=== PATIENT | female | born 1990 | race Caucasian/White ===

== ENCOUNTER 2023-08-26 11:27 | Emergency (ER) | payer OTHER, SELFPAY ==
[2023-08-26 11:34] VITALS: BP 129/96
--- NOTE | 2023-08-26 12:29 | EDRN ---
Tre Casillas PA was in to see pt at this time.
--- NOTE | 2023-08-26 12:40 | ED.GENMED ---
History of Present Illness
General
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
Time Seen by Provider: 08/26/23 12:09
Travel History
Have you had any contact with someone who has COVID-19?: No
Do you have any symptoms of coronavirus? Fever > 100 degrees, chills, cough, shortness of breath, sore throat, loss of taste or smell, muscle aches, or headache?: No
History of Present Illness
History of Present Illness:
32-year-old female with history of insulin-dependent diabetes presents the emergency department for evaluation of a 'cyst' on the right side of her vagina over the past week. She noted purulent discharge from the site this morning. No fevers or
chills. Denies concern for sexual transmitted infection
Past History
Past History
ED Past Medical History: IDDM, Other (gestational diabetes) and Other (Low back pain)
ED Past Surgical History: Other (Myringotomy tubes)
Social History
Tobacco: Former smoker
Alcohol: Occasional
Drug: None
Personal: Single
Living: with family
Employment: Employed ([employer] home)
Family History
Family History: Diabetes
Review of Systems
Review of Systems
Allergies reviewed?: Yes
All Other Systems: ROS reviewed and negative except as documented in HPI and ROS
Phy Exam
Physical Exam
Physical Exam:
GEN: Well appearing, NAD, WDWN
HEENT: Oral mucosa moist, no scleral icterus
Cardiac: Regular rate
Lung: No respiratory distress, no tachypnea
MSK: No gross deformity or injuries
: Exam performed with plumbing service technician Anuradha Davis at bedside. There is a 1 cm x 2 cm firm abscess with central punctate wound to the right external labia, this is not consistent with a Bartholin gland abscess. There is small amount of purulent
discharge
Skin: Good color, no pallor or jaundice, no rashes
Neuro: AO x3, moves all extremities freely
Psych: Calm, cooperative
Course
Vital Signs
Initial and Last Documented VS:
Initial Vital Signs
Temp Pulse Resp BP Pulse Ox
98 F 105 16 129/96 98
08/26/23 11:34 08/26/23 11:34 08/26/23 11:34 08/26/23 11:34 08/26/23 11:34
Last Documented Vital Signs
Temp Pulse Resp BP Pulse Ox
98 F 105 16 129/96 98
08/26/23 11:34 08/26/23 11:34 08/26/23 11:34 08/26/23 11:34 08/26/23 11:34
MDM/Problems Addressed
MDM/Problems Addressed:
The abscess wound was opened at the bedside after topical anesthetic using an 11 blade scalpel. There is only a scant amount of purulent discharge. Blunt forceps were used to bluntly dissect and break up loculations however no significant purulent
discharge was noted. This is not a Bartholin gland abscess. Will treat with antibiotics both topically and orally given that she is immunocompromise in the setting of insulin-dependent diabetes.
*Critical Care Note
Total Time (30-74mins, 75-104mins- exclusive of procedures): Not Applicable
ED Attending Note
-
Portions of this chart may have been created with voice recognition software.� Occasional wrong word or��sound alike� substitutions may have occurred due to the inherent limitations of voice recognition software.
Discharge Plan
Departure
Patient Disposition: Home (Routine Discharge)
Date of Disposition: 08/26/23
Time of Disposition: 12:40
Patient with high blood pressure during this ER visit?: No
Discharge Problem:
Abscess of genital labia
Instructions: Abscess Incision and Drainage (DC)
Prescriptions:
New
sulfamethoxazole-trimethoprim [Bactrim DS] 800-160 mg tablet
1 tab PO Q12H Qty: 14 0RF
mupirocin 2 % ointment
1 applic topical BID 7 Days Qty: 22 0RF
No Action
(DME) Blood Glucose Test 1 EACH strip
1 ea MC ACHS Qty: 200 0RF
Rx Instructions:
E10.65
OneTouch Verio test strips
insulin lispro [Humalog KwikPen Insulin] 100 UNIT/ML insulin pen
14 units SC AC Qty: 5 0RF
Rx Instructions:
E10.65
(DME) pen needle, diabetic 1 EACH needle
1 ea MC ACHS Qty: 200 0RF
Rx Instructions:
BD ROHAN pen needles
E10.65
(DME) lancets 1 EACH misc
1 ea MC ACHS Qty: 200 0RF
Rx Instructions:
Delica lancets
E10.65
insulin glargine [Basaglar KwikPen U-100 Insulin] 100 UNIT/ML insulin pen
28 unit SQ HS Qty: 5 0RF
Rx Instructions:
E1065
cefdinir 300 mg capsule
300 mg PO BID 6 Days Qty: 12 0RF
insulin lispro [Humalog KwikPen Insulin] 100 unit/mL insulin pen
1 sliding scale dose SC DIRECTED Qty: 15 0RF
Referrals:
Cornelius Hendrix MD [Family Provider] -
Activity Restrictions/Additional Instructions:
Warm compresses daily
Keep covered until bleeding stops
Interventions
Interventions:
*Risk Screen - Suicide Last Done: 08/26/23 11:34
*General Assessment Last Done: 08/26/23 11:34
*Neglect/Abuse Screening Last Done: 08/26/23 11:34
*Nursing Disposition Last Done: 08/26/23 12:50
Discharge Date and Time
Discharge Date/Time: 08/26/23 12:50
--- NOTE | 2023-08-26 12:50 | EDRN ---
This RN did not see pt. Pt was seen and discharged solely by Tre VILLALBA.
== END 2023-08-26 12:50 | disposition home or self-care (01) ==
LOC: EMR 11:27
PROVIDERS: EMERGENCY PHYSICIAN Emergency Medicine; FAMILY PHYSICIAN Internal Medicine
DX: N76.4 Abscess of vulva (principal); E11.9 Type 2 diabetes mellitus without complications; Z79.4 Long term (current) use of insulin; Z83.3 Family history of diabetes mellitus; Z87.891 Personal history of nicotine dependence
CPT/HCPCS: 99282; 56405

== ENCOUNTER → 2023-11-04 06:36 | Day surgery (SDC) | payer OTHER, SELFPAY ==
[2023-11-04 12:37] LABS: Glucose - Point of Care 283 mg/dl (70-99)
== END ==
LOC: GI 06:36
PROVIDERS: ATTENDING PHYSICIAN Internal Medicine Gastroenterology
DX: K52.9 Noninfective gastroenteritis and colitis, unspecified (principal); K64.8 Other hemorrhoids; D12.2 Benign neoplasm of ascending colon
CPT/HCPCS: 45385; 45380; 88305; 82962

== ENCOUNTER 2024-01-30 22:11 | Inpatient (IN) | payer OTHER, SELFPAY ==
[2024-01-30 18:30] VITALS: BP 136/90
[2024-01-30 18:48] LABS: % Basophils 0.7 % (0-2); % Eosinophils 0.9 % (0-6); % Immature Granulocytes 0.4 % (0-0.5); % Lymphocytes 27.2 % (20.5-51.1); % Monocytes 4.3 % (1.7-9.3); % Neutrophils 66.5 % (42.2-75.2); Absolute Basophils 0.1 10^3/uL (0-0.2); Absolute Eosinophils 0.1 10^3/uL (0-0.7); Absolute Lymphocytes 2.8 10^3/uL (1.2-3.4); Absolute Monocytes 0.4 10^3/uL (0.1-0.6); Absolute Neutrophils 6.8 10^3/uL (1.4-6.5); Hemoglobin 12.9 g/dL (12.0-16.0); Mean Corp Hgb Conc. 34.9 g/dL (33.0-37.0); Mean Corpuscular Hgb 29.6 pg (27.0-31.0); Mean Corpuscular Volume 84.9 fL (81.0-99.0); Mean Platelet Volume 10.1 fL (7.4-10.4); Nucleated Red Blood Cells % 0 %; Platelet Count 355 10^3/uL (130-400); Red Blood Cell Count 4.36 10^6/uL (4.20-5.40); Red Cell Dist. Width 13.6 % (11.5-14.5); White Blood Cell Count 10.2 10^3/uL (4.8-10.8)
[2024-01-30 18:56] LABS: HCG, Serum Qualitative Screen Negative
[2024-01-30 19:01] LABS: ALT (SGPT) 22 U/L (0-35); AST (SGOT) 24 U/L (14-36); Albumin 3.7 g/dl (3.5-5.0); Alkaline Phosphatase 98 U/L (38-126); Blood Urea Nitrogen 16 mg/dl (7-17); Calcium 9.3 mg/dl (8.4-10.2); Carbon Dioxide 24 mmol/L (22-30); Chloride 101 mmol/L (98-107); Glucose 446 mg/dl (70-99); Potassium 4.6 mmol/L (3.5-5.1); Sodium 132 mmol/L (135-145); Total Bilirubin 0.3 mg/dl (0.2-1.3); Total Protein 6.4 g/dl (6.3-8.2); eGFR > 60.00
--- NOTE | 2024-01-30 20:38 | ED.SKININJ ---
HPI-Injury
<Sherley Mccarty NP - Last Filed: 01/30/24 23:36>
General
Chief Complaint: Skin Problem
Source: patient
Exam Limitations: none
Time Seen by Provider: 01/30/24 20:07
Nursing documentation reviewed up to this point in time: agreed with
History of Present Illness-Injury
Is this injury a work related problem?: No
Is pt an associate of [facility]?: No
Initial Injury comments:
Patient states she was walking in a water park without shoes 1 week ago. Developed blisters on her right distal plantar toes 2 and 3. States she was treating with antibiotc ointment and bandaids. States over the past few days toes became red and
swelling. Redness and swelling expanding to foot. Brought self to ED for eval. Denies fever/chills. IDDM, hx amputation to right great toe.
Past History
<Sherley Mccarty NP - Last Filed: 01/30/24 23:36>
Past History
ED Past Medical History: IDDM, Other (gestational diabetes) and Other (Low back pain)
ED Past Surgical History: Other (Myringotomy tubes)
Social History
Tobacco: Former smoker
Alcohol: Occasional
Drug: None
Personal: Single
Living: with family
Employment: Employed ([employer] home)
Family History
Family History: Diabetes
Review of Systems
<Sherley Mccarty NP - Last Filed: 01/30/24 23:36>
Review of Systems
Allergies reviewed?: Yes
All Other Systems: ROS reviewed and negative except as documented in HPI and ROS
Constitutional: Reports no symptoms
Musculoskeletal: Reports joint pain (foot and toe pain and swelling, erythema.)
Skin: Reports no symptoms (cellulitis to right toes 2,3, foot. Open wounds plantar surface of toes 2,3)
Neurological: Reports no symptoms
Psychiatric: Reports no symptoms
Phy Exam
<Sherley Mccarty NP - Last Filed: 01/30/24 23:36>
General Physical Exam
General Presentation: well appearing
General age: appears stated age
General Skin: warm and dry
General Habitus: normal
General Mental: alert
Musculoskeletal Exam
Musculoskeletal Exam: neuro vasc intact
Skin Exam
Skin Exam: other (1.5cm open wounds to right plantar surface of toes 2,3. Erythema to toes and foot.)
Psychiatric Exam
Psychiatric Exam: normal mood/affect
Course
<Sherley Mccarty TRAVELING PHLEBOTOMIST - Last Filed: 01/30/24 23:36>
Orders/Labs/Results
Orders:
Orders
01/30/24 18:33
Test Result ONCE
Foot, Right 3 View [CR Foot - Right Min 3 Views] Urgent
Comment:
Reason For Exam: swelling
01/30/24 18:40
Complete Blood Count/With Diff Urgent
Comprehensive Metabolic Panel Urgent
HCG, Serum Qualitative Screen Urgent
01/30/24 20:46
Vancomycin 1 Gram/200 ml [Vancocin] 1 gram in 200 ml IV NOW
01/30/24 21:09
Admit/Transfer Patient As Directed
Co-Sign Provider:
Level of Care: Inpatient admission
Assign to:: Medical/Surgical
Physician / Group: htay
Diagnosis: Rt diabetic foot Cellulitis Plu or minius SIRS picture with evoving sepsis
Reason for Hospitalization: Rt diabetic foot Cellulitis Plu or minius SIRS picture with evoving sepsis
Expected length of stay greater than two midnights?: Yes
ELOS- Estimated Length of Stay in days: 3
I certify the patient meets the requirements for IP care: Yes
01/30/24 21:10
Code Status As Directed
Resuscitation Status: Full Code
01/30/24 21:20
Wound Culture [Wound/Abscess/Other Culture] Urgent
JORDYN Source: Toe
Specimen Description:
Date Specimen was Collected: 01/30/24
Time Specimen was Collected: 21:01
01/30/24 22:00
Flush (0.9% Sodium Chloride) [Flush (Nss)] See Dose Instructions IV PER PROTOCOL
01/30/24 22:47
Acetaminophen [Tylenol] 650 mg PO Q6HPRN PRN
Bisacodyl [Dulcolax] 10 mg RECTAL [id number] PRN
Dextrose 50%-Water [Dextrose 50% Syringe] 12.5 grams IV [id number] PRN
Docusate W/Senna [Senokot-S] 1 tablet PO BIDPRN PRN
Glucagon [GlucaGen] 1 mg IM PRN PRN
Polyethylene Glycol Powder [Miralax] 17 grams PO DAILYPRN PRN
VANCOMYCIN Pharmacy to Dose [VANCOCIN Pharmacy to Dose] 1 each Pharmacy To Prepare [Call Pharmacy To Prepare] 0 ml IV PER PROTOCOL
01/30/24 22:47
INFECTIOUS DISEASE CONSULT Routine
Consulting Provider: Daija Flores
Was physician already notified: Yes
Reason for consult: Cellulitis of Rt toes 2,3 and foot with open wounds plantar surface
PODIATRY CONSULT Routine
Consulting Provider: Abraham Natarajan
Was physician already notified: Yes
Reason for consult: Cellulitis of Rt toes 2,3 and foot with open wounds plantar surface
Activity As Directed
Activity Level: With Assistance
Bedside Glucose Monitoring As Directed
Frequency: AC&HS
Additional Instructions:: Change to q6h if pt on TPN, tube feeding or not eating
Vital Signs As Directed
Frequency: Per unit guidelines
DX Deep Vein Thrombosis Video Routine
01/31/24 Breakfast
1800 calorie (15 carb) Diabetic
At Your Request: Full Participation
Does patient need a safe tray?: No
Basic Metabolic Panel IN AM
CRP [C-Reactive Protein] IN AM
Complete Blood Count/No Diff IN AM
ESR [Erythrocyte Sed Rate] IN AM
Glycohemoglobin (HgbA1c) IN AM
Low Ext No Joint, Right With MR [MR Right Le No Joint With] IN AM
Comment:
Reason For Exam: Rt diabetic foot Cellulitis HX amputation R G toe
Recent pill cam endoscopy?: No
01/31/24 07:30
Insulin Aspart High Resistance [Novolog Flexpen-High Resistance] See Protocol SC AC
Insulin Aspart Pen [Novolog Flexpen] 14 units SC AC
01/31/24 18:00
Enoxaparin Sodium [Lovenox] 40 mg SC QPM
Abnormal Lab Results
01/30/24
18:40
Absolute Neuts (auto) 6.8 H 10^3/uL
(1.4-6.5)
Sodium 132 L mmol/L
(135-145)
Glucose 446 H mg/dl
(70-99)
01/30/24 18:40
01/30/24 18:40
Vital Signs
Initial and Last Documented VS:
Initial Vital Signs
Temp Pulse Resp BP Pulse Ox
99.3 F 129 16 136/90 98
01/30/24 18:30 01/30/24 18:30 01/30/24 18:30 01/30/24 18:30 01/30/24 18:30
Last Documented Vital Signs
Temp Pulse Resp BP Pulse Ox
98.5 F 111 18 139/87 100
01/30/24 22:55 01/30/24 22:55 01/30/24 22:55 01/30/24 22:55 01/30/24 22:55
<Sana Gaffney MD - Last Filed: 01/30/24 20:40>
Orders/Labs/Results
Orders:
Orders
01/30/24 18:33
Test Result ONCE
Foot, Right 3 View [CR Foot - Right Min 3 Views] Urgent
Comment:
Reason For Exam: swelling
01/30/24 18:40
Complete Blood Count/With Diff Urgent
Comprehensive Metabolic Panel Urgent
HCG, Serum Qualitative Screen Urgent
01/30/24 20:46
Vancomycin 1 Gram/200 ml [Vancocin] 1 gram in 200 ml IV NOW
01/30/24 21:09
Admit/Transfer Patient As Directed
Co-Sign Provider:
Level of Care: Inpatient admission
Assign to:: Medical/Surgical
Physician / Group: htay
Diagnosis: Rt diabetic foot Cellulitis Plu or minius SIRS picture with evoving sepsis
Reason for Hospitalization: Rt diabetic foot Cellulitis Plu or minius SIRS picture with evoving sepsis
Expected length of stay greater than two midnights?: Yes
ELOS- Estimated Length of Stay in days: 3
I certify the patient meets the requirements for IP care: Yes
01/30/24 21:10
Code Status As Directed
Resuscitation Status: Full Code
01/30/24 21:20
Wound Culture [Wound/Abscess/Other Culture] Urgent
JORDYN Source: Toe
Specimen Description:
Date Specimen was Collected: 01/30/24
Time Specimen was Collected: 21:01
01/30/24 22:00
Flush (0.9% Sodium Chloride) [Flush (Nss)] See Dose Instructions IV PER PROTOCOL
01/30/24 22:47
Acetaminophen [Tylenol] 650 mg PO Q6HPRN PRN
Bisacodyl [Dulcolax] 10 mg RECTAL [id number] PRN
Dextrose 50%-Water [Dextrose 50% Syringe] 12.5 grams IV [id number] PRN
Docusate W/Senna [Senokot-S] 1 tablet PO BIDPRN PRN
Glucagon [GlucaGen] 1 mg IM PRN PRN
Polyethylene Glycol Powder [Miralax] 17 grams PO DAILYPRN PRN
VANCOMYCIN Pharmacy to Dose [VANCOCIN Pharmacy to Dose] 1 each Pharmacy To Prepare [Call Pharmacy To Prepare] 0 ml IV PER PROTOCOL
01/30/24 22:47
INFECTIOUS DISEASE CONSULT Routine
Consulting Provider: Daija Flores
Was physician already notified: Yes
Reason for consult: Cellulitis of Rt toes 2,3 and foot with open wounds plantar surface
PODIATRY CONSULT Routine
Consulting Provider: Abraham Natarajan
Was physician already notified: Yes
Reason for consult: Cellulitis of Rt toes 2,3 and foot with open wounds plantar surface
Activity As Directed
Activity Level: With Assistance
Bedside Glucose Monitoring As Directed
Frequency: AC&HS
Additional Instructions:: Change to q6h if pt on TPN, tube feeding or not eating
Vital Signs As Directed
Frequency: Per unit guidelines
DX Deep Vein Thrombosis Video Routine
01/31/24 Breakfast
1800 calorie (15 carb) Diabetic
At Your Request: Full Participation
Does patient need a safe tray?: No
Basic Metabolic Panel IN AM
CRP [C-Reactive Protein] IN AM
Complete Blood Count/No Diff IN AM
ESR [Erythrocyte Sed Rate] IN AM
Glycohemoglobin (HgbA1c) IN AM
Low Ext No Joint, Right With MR [MR Right Le No Joint With] IN AM
Comment:
Reason For Exam: Rt diabetic foot Cellulitis HX amputation R G toe
Recent pill cam endoscopy?: No
01/31/24 07:30
Insulin Aspart High Resistance [Novolog Flexpen-High Resistance] See Protocol SC AC
Insulin Aspart Pen [Novolog Flexpen] 14 units SC AC
01/31/24 18:00
Enoxaparin Sodium [Lovenox] 40 mg SC QPM
Abnormal Lab Results
01/30/24
18:40
Absolute Neuts (auto) 6.8 H 10^3/uL
(1.4-6.5)
Sodium 132 L mmol/L
(135-145)
Glucose 446 H mg/dl
(70-99)
01/30/24 18:40
01/30/24 18:40
Vital Signs
Initial and Last Documented VS:
Initial Vital Signs
Temp Pulse Resp BP Pulse Ox
99.3 F 129 16 136/90 98
01/30/24 18:30 01/30/24 18:30 01/30/24 18:30 01/30/24 18:30 01/30/24 18:30
Last Documented Vital Signs
Temp Pulse Resp BP Pulse Ox
98.5 F 111 18 139/87 100
01/30/24 22:55 01/30/24 22:55 01/30/24 22:55 01/30/24 22:55 01/30/24 22:55
<Sherley Mccarty NP - Last Filed: 01/30/24 23:36>
*Radiology
Radiology exam reviewed: radiology read reviewed
*Pulse Oximetry
Patient hypoxic: no
*Critical Care Note
Total Time (30-74mins, 75-104mins- exclusive of procedures): Not Applicable
ED Attending Note
<Sherley Mccarty NP - Last Filed: 01/30/24 23:36>
-
Portions of this chart may have been created with voice recognition software.� Occasional wrong word or��sound alike� substitutions may have occurred due to the inherent limitations of voice recognition software.
<Sana Gaffney MD - Last Filed: 01/30/24 20:40>
ED Attending Note
Patient seen and examined by attending physician: Yes
I performed the substantive portion of visit, reviewed & personally made and approve the management plan that is documented in note by myself or TATY.: Yes
ED Attending Note:
Patient evaluated by me. Presents with erythema and swelling of third right toe with spreading of erythema along dorsal aspect of right foot. Given patient is diabetic and has history of significant toe and foot infections, decision made to bring
her in with IV antibiotics for acute diabetic foot infection. Patient is breathing comfortably. Lungs are clear.
Discharge Plan
Departure
Patient Disposition: Admit
Date of Disposition: 01/30/24
Time of Disposition: 20:47
Presentation/result/management discussed w/ accepting MD/DO: Hospitalist
Patient with high blood pressure during this ER visit?: No
Condition: Fair
Covid-19: Not Applicable
Discharge Problem:
Cellulitis of foot, right
Interventions
Interventions:
*Risk Screen - Suicide Last Done: 01/30/24 18:30
*General Assessment Last Done: 01/30/24 18:30
*Neglect/Abuse Screening Last Done: 01/30/24 18:30
ED- Fall Risk Assessment Last Done: 01/30/24 21:03
*ED COVID-19 Vaccine History Last Done: 01/30/24 18:30
*Nursing Disposition Last Done: 01/30/24 22:32
ED-Skin Assessment Last Done: 01/30/24 21:03
Discharge Date and Time
Discharge Date/Time: 01/30/24 22:33
[2024-01-30 21:02] VITALS: BMI 28.4
--- NOTE | 2024-01-30 21:04 | HPS.HSE ---
Family Physician
-
Family Physician: Cornelius Hendrix MD
Chief Complaint
-
Rt foot infection
History of Present Illness
33F HX IDDM, S/p amputation of the right great toe at the level of the base of the proximal phalanx was seen at ER for evalaution of Redness and swelling expanding to foot.
- it is preceded by walking in a water park without shoes 1 week ago.
- followed by blisters on her right distal plantar toes 2 and 3.
- OP delf medication with antibiotic ointment and band aids.
- now few days toes became red and swelling and expanding to foot.
Medical History
Past Medical History
Past Medical History: Reports IDDM and Other (back pain, migraines)
Past Surgical History: Reports Orthopedic (S/p amputation of the right great toe at the level of the base of the proximal phalanx in January 2021 )
Social History
Tobacco: Smoker
Alcohol: Occasional
Drug: None
Living: With Family
Family History
Family History: Diabetes
Allergies / Home Medications
Allergies reflects when Allergies were last updated in [email or web address].
Home Medications with original date entered in [email or web address]
Allergy/Medication List:
Allergies
Allergy/AdvReac Type Severity Reaction Status Date / Time
adhesive tape Allergy Rash Verified 01/30/24 18:32
oxycodone Allergy Itching & Verified 01/30/24 18:32
paranoia
tramadol Allergy Itching Verified 01/30/24 18:32
Home Medications
blood sugar diagnostic (Blood Glucose Test strips) #200 strips 02/13/21
insulin glargine 100 unit/mL (3 mL) subcutaneous pen (Basaglar KwikPen U-100 Insulin) 28 unit (0.28 mL) SQ HS ##5 02/13/21
insulin lispro 100 unit/mL subcutaneous pen (Humalog KwikPen (U-100) Insulin) 14 units (0.14 mL) SC AC ##5 02/13/21
lancets 30 gauge #200 ea 02/13/21
pen needle, diabetic 32 gauge x ' ##200 02/13/21
<del>cefdinir</del> <del>300</del> <del>mg</del> <del>capsule</del> <del>300</del> <del>mg</del> <del>PO</del> <del>BID</del> <del>6</del> <del>days</del> <del>#12</del> <del>caps</del> <del>01/01/23</del>
insulin lispro 100 unit/mL subcutaneous pen (Humalog KwikPen (U-100) Insulin) 1 sliding scale dose SC DIRECTED #15 mL 01/01/23
mupirocin 2 % topical ointment 1 applic topical BID 7 days #22 grams 08/26/23
sulfamethoxazole 800 mg-trimethoprim 160 mg tablet (Bactrim DS) 1 tab PO Q12H #14 tabs 08/26/23
Review of Systems
-
Constitutional: Reports No Symptoms
EENT: Reports No Symptoms
Respiratory: Reports No Symptoms
Cardiac: Reports No Symptoms
Abdomen/GI: Reports No Symptoms
: Reports No Symptoms
Musculoskeletal: Reports No Symptoms
Skin: Reports See HPI
Neurological: Reports No Symptoms
Endocrine: Reports No Symptoms
Hematologic/Lymphatic: Reports No Symptoms
Psych: Reports No Symptoms
Physical Exam
Vital Signs
Vital Signs
Temp Pulse Resp BP Pulse Ox
99.3 F 129 16 136/90 98
01/30/24 18:30 01/30/24 18:30 01/30/24 18:30 01/30/24 18:30 01/30/24 18:30
Physical Exam
General: Well Nourished, No Apparent Distress, Comfortable and Conversant
HEENT: NormoCephalic and Anicteric
Respiratory: Clear
Cardiac: S1/S2 and Tachycardia
GI: Soft, Non Tender and Non Distended
Skin: Other (Cellulitis of Rt toes 2,3 and foot with open wounds plantar surface of toes 2,3)
Neuro: AO x 3; No Tremors
Laboratory Results
-
01/30/24 18:40
01/30/24 18:40
Laboratory Results
Total Bilirubin 0.3 mg/dl (0.2-1.3) 01/30/24 18:40
AST 24 U/L (14-36) 01/30/24 18:40
ALT 22 U/L (0-35) 01/30/24 18:40
Alkaline Phosphatase 98 U/L (38-126) 01/30/24 18:40
Data Reviewed
-
Diagnostic Radiology: Report Reviewed by me
Lab Data: Labs Reviewed by me
Old Records: Reviewed
Impression/Plan
-
Reviewed VS: T 99.3 Tmax 99.9 Tachycardia 130
Data
WCC 10.2
Na 132 corrected Na 138for BG 446
nl Cr
nl eGFR
NEG HCG
WD Cx sent via ER
CR Foot - Right Min 3 Views
Prior amputation of the right great toe at the level of the base of the proximal phalanx again seen.
No findings to suggest recent cortical bony destructive process.
Last hospitalist admission: 02/09/21 - 02/13/21
PDXs
1. Sepsis and Rt G toe osteomyelitis with cellulitis.
2. poorly-controlled type 1 diabetes with A1c 15.5%.
3.Tobacco abuse.
4.Pseudohyponatremia from hyperglycemia,
ASSESSMENT & PLAN
Pending Rx reconciliation
Rt diabetic foot Cellulitis with SIRS picture with plus or minus evolving sepsis
Cellulitis of Rt toes 2,3 and foot with open wounds plantar surface of toes 2,3
- Prior amputation of the right great toe at the level of the base of the proximal phalanx
- Prior HX Polymicrobic POS WD Cx including MSSA isolate
- NEG XR evidence of OM
- agree with IV vancomycin for now
- f/u Wd Cx
- f/u ESR/CRP
- MRI of Rt foot to eval OM
- Consult Podiatry and ID
Hyperglycemia due to Rt diabetic foot Cellulitis
Diabetes mellitus type 1
HX suggestive of distal paresthesia of both Linda suspect diabetic neuropathy
-Non-compliant ?
- cont Home Insulin regime after reconciliation
- add Moderate SSI
- ADA 1800 Adithya diet
HX Torn meniscus of lt Knee
Associated pseudohyponatremia due to BG 400s
- corrected Na is 138
Former smoker for last 2 yrs
DVT Px: LMWH
Code: Full
IP MS
[2024-01-30] MEDS: VANCOCIN 200 IV (21:20)
--- NOTE | 2024-01-30 21:25 | EDRN ---
Dr. Garrido at bedside working on admission
[2024-01-30 21:32] VITALS: BP 131/86
[2024-01-30 22:54] LABS: Glucose - Point of Care 345 mg/dl (70-99)
[2024-01-30 22:55] VITALS: BP 139/87; BMI 26.7
--- NOTE | 2024-01-30 23:12 | PHA.VAN.IN ---
Addendum entered and electronically signed by Miac Sims Raine 01/31/24 08:25:
Note: Vanc 500mg Q8H provided the following patient-specific PK during Jan 2021 admission:
Extrapolated Cmax (mcg/mL): 10.9 (peak drawn appropriately)
Extrapolated Cmin (mcg/mL): 4.6 (trough drawn appropriately; levels were drawn at steady state after 4th dose)
Calculated AUC (mcg*h/mL): 176
Calculated ke: 0.1237
Calculated half life (H): 5.6
Calculated Vd (L): 68.97
Calculated Vanc CL (ml/min): 142.18
Regimen was adjusted to Vanc 1250mg Q8H which was predicted to provide AUC 481, peak 28.8, and trough 12.9 using patient-specific PK but was discontinued prior to repeat levels being obtained
Original Note:
Assessment
- Assessment
Renal Function: Appears similar to baseline
Concomitant Antimicrobials: NONE
- Previous Dosing Experience
Previous Regimen: 1250MG IV Q8H
Date of Regimen: 02/11/21
Provided Trough of: 12.9 PREDICTED
Provided AUC of: 481 PREDICTED
Patient's SCR is: Elevated compared to previous dosing experience (02/11/21 SCR = 0.3)
Patient's weight is: Elevated compared to previous dosing experience (02/09/21 WT = 57.4 KG)
AUC Dosing Plan
- Dosing Variables
Dosing Weight (kg): 75
Dosing CrCl (ml/min): 112
Vd coefficient (L/kg): 0.7
- Empiric Dosing
Initial / Loading Dose: 1750MG
Maintenance Regimen: 750MG IV Q8H
Estimated AUC (mcg*h/mL): 462
Estimated Peak (mcg*h/mL): 26.4
Estimated Trough (mcg/ml): 13.4
Estimated Half Life (H): 7.1
Pharmacokinetics Vancomycin I
- -
Patient Age: 33
Patient Sex: Female
Vancomycin Day #: 1
Indication: Skin And Soft Tissue (RLE CELLULITIS/OM/SEPSIS)
Requesting Provider: DREW
Height / Weight:
Height 5 ft 4 in
Actual Weight 70.477 kg
Pertinent Past Medical History: DM; PRIOR AMPUTATION
- Vital Signs / Lab Results
Temp Pulse Resp BP Pulse Ox
98.5 F 111 18 139/87 100
01/30/24 22:55 01/30/24 22:55 01/30/24 22:55 01/30/24 22:55 01/30/24 22:55
Lab Results - Hematology
01/30/24
18:40
WBC 10.2
Lab Results - Chemistry
01/30/24
18:40
BUN 16
Creatinine 0.7
Albumin 3.7
[2024-01-30] MEDS: VANCOCIN 150 IV (23:27)
--- NOTE | 2024-01-31 00:10 | PTCARENOTE ---
Patient arrived on unit @2233 via stretcher from ED, ambulate to bed. Patient AAOx3, denies any c/o pain or discomfort. Skin assessment completed, oriented to unit, call marie within reach.
[2024-01-31 00:45] LABS: Glucose - Point of Care 320 mg/dl (70-99)
[2024-01-31] MEDS: NOVOLOG FLEXPEN 7 UNITS SC (01:15)
[2024-01-31] MEDS: VANCOCIN 150 IV ×3 (06:01→21:37)
[2024-01-31 07:00] VITALS: BP 126/86
[2024-01-31 07:50] LABS: Hematocrit 36.6 % (37.0-47.0); Hemoglobin 12.8 g/dL (12.0-16.0); Mean Corpuscular Volume 85.9 fL (81.0-99.0); Platelet Count 280 10^3/uL (130-400); Red Blood Cell Count 4.26 10^6/uL (4.20-5.40); Red Cell Dist. Width 13.5 % (11.5-14.5); White Blood Cell Count 7.6 10^3/uL (4.8-10.8)
[2024-01-31] MEDS: LR 1000 IV (08:13)
[2024-01-31 08:14] LABS: Glucose - Point of Care 166 mg/dl (70-99)
[2024-01-31 08:15] LABS: Blood Urea Nitrogen 13 mg/dl (7-17); Calcium 8.8 mg/dl (8.4-10.2); Carbon Dioxide 21 mmol/L (22-30); Chloride 108 mmol/L (98-107); Estimated Creatinine Clearance 114 ml/min; Glucose 164 mg/dl (70-99); Potassium 3.9 mmol/L (3.5-5.1); Sodium 135 mmol/L (135-145); eGFR > 60.00
--- NOTE | 2024-01-31 08:22 | PHA.VAN.FU ---
Vancomycin Assessment / Plan
- Assessment
Renal Function: Stable
WBC's are: WNL
- Dosing Plan
Continue: Vanc 750mg Q8H
- Monitoring Plan
No level(s) ordered at this time: consider levels in next few days
- Follow Up
Pharmacy will continue to follow.
Vancomycin Follow UP
- -
Patient Age: 33
Patient Sex: Female
Vancomycin Day #: 2
Indication: Skin And Soft Tissue
Requesting Provider: Dr. Garrido
Pertinent Antimicrobial Allergies:
no pertinent antibiotic history
Height / Weight:
Height 5 ft 4 in
Actual Weight 70.477 kg
Pertinent Past Medical History: DM I
- Vital Signs / Lab Results
Temp Pulse Resp BP Pulse Ox
98.5 F 111 18 139/87 100
01/30/24 22:55 01/30/24 22:55 01/30/24 22:55 01/30/24 22:55 01/30/24 22:55
Lab Results - Hematology
01/30/24 01/31/24
18:40 07:05
WBC 10.2 7.6
Lab Results - Chemistry
01/30/24 01/31/24
18:40 07:05
BUN 16 13
Creatinine 0.7 0.4 L
Estimated Creat Clear 114
Albumin 3.7
[2024-01-31 08:37] LABS: Glycohemoglobin (HgbA1c) 14.6 % (4.0-5.6)
[2024-01-31 08:41] LABS: Erythrocyte Sed Rate 78 mm/hour (0-20)
[2024-01-31] MEDS: NOVOLOG FLEXPEN 14 UNITS SC ×3 (09:13→18:12)
[2024-01-31] MEDS: NOVOLOG FLEXPEN-HIGH RESISTANCE 2 UNITS SC ×2 (09:14→18:12)
--- NOTE | 2024-01-31 11:00 | W.PN.HOSP.TC ---
Today's Communication/Plan
-
Continue with IV vancomycin
Follow-up ID and podiatry recommendations
Monitor blood glucose on current insulin regimen
Assessment / Plan
Assessment / Plan
#Nonpurulent cellulitis of right foot
#H/O poorly controlled type 1 diabetes mellitus
#SIRS picture with plus or minus evolving sepsis
-Open wounds plantar surface of toes 2,3; H/O amputation of great toe at the level of the proximal phalanx base
-Has a previous history of polymicrobial infections with previous wound culture MSSA isolated
-X-ray in the ED did not show any evidence of osteomyelitis; MRI pending for further assessment
-Started on IV vancomycin empirically, podiatry and ID consults pending
-Continue IV vancomycin for now follow-up podiatry and ID recommendations
-Trend inflammatory markers daily
-Follow-up MRI
#Hyperglycemia due to Rt diabetic foot Cellulitis
#Type 1 Diabetes mellitus
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
-Question compliance to regimen, resumed on home insulin regimen with Lantus and Humalog
-Insulin sliding scale with Accu-Cheks was added, started on 1800-calorie daily diet
-Will need improved hyperglycemia control recurrent infections
-Should follow-up with PCP, consider EMG/NCS for likely peripheral neuropathy
#H/O Torn meniscus of lt Knee
#Pseudohyponatremia
#Former smoker -- stopped two years ago
DVT Px: LMWH
CODE STATUS: Full code
Diet: 1800 -calorie/day, carb controlled
Anticipated Discharge: 24 - 48 hours
Subjective/Interval History
-
Date of Service: January 31, 2024
Seen and examined at bedside. No acute events. She states she feels fine and denies any symptoms including fevers or chills, pain in her foot. States that she was at a water park about a week ago [place] [employer], was barefoot at the time and noticed
multiple lacerations and sites of minor trauma to the foot. Her foot became red following that incident, denies any known pus or purulent drainage
Objective Data
-
Labs:
Laboratory Results
01/31/24
07:05
WBC 7.6
Hgb 12.8
Hct 36.6 L
Plt Count 280 D
Sodium 135
Potassium 3.9
Chloride 108 H
Carbon Dioxide 21 L
BUN 13
Creatinine 0.4 L
Glucose 164 H
Calcium 8.8
Vital Signs:
Vital Signs
Temp Pulse Resp BP Pulse Ox
98.4 F 102 16 126/86 95
01/31/24 07:00 01/31/24 07:00 01/31/24 07:00 01/31/24 07:00 01/31/24 07:00
I&O
01/30/24 01/31/24 02/01/24
06:59 06:59 06:59
Intake Total 540 / 540
Balance 540 / 540
Review of Systems
-
History Source: Patient
All other systems: Reviewed and negative
Physical Exam
-
General: Well Nourished, No Apparent Distress, Comfortable and Conversant
HEENT: Normocephalic, Atraumatic, Moist Mucous Membranes and Tracheotomy; Negative Good Dentition
Respiratory: Clear to Auscultation and Non Labored Respirations; Negative Wheezes, Rales or Rhonchi
Cardiac: Regular Rhythm, S1/S2 and Murmur (2+, systolic, LSB); Negative Rub or Gallop
GI: Soft, Nontender, Nondistended and Normal Bowel Sounds
Musculoskeletal: No Clubbing, No Cyanosis and Edema, Right Lower Extrem (1+ pitting to right foot, to level of ankle)
Skin: Warm, Dry and Ulcers (Ulcerative lesions on second and third digit of right foot, larger ulcerative appearing lesion of right metatarsal pad; no purulence or fluctuance)
Neuro: AO x 3, Nonfocal/Grossly Intact and Central Nerve's Intact
Data Reviewed
-
Diagnostic Radiology: Report Reviewed by me
Labs: Labs Reviewed by me
--- NOTE | 2024-01-31 11:24 | CON.ID ---
Consultation
-
Date/Time Consultation Requested: 01/30/24 22:47
Date/Time Consultation Performed: 01/31/24 11:25
Requesting Provider: Dr Garrido
Performing Provider: Dr Monteiro
Reason for Consultation: Cellulitis of Rt toes 2,3 and foot with open wounds plantar surface
Chief Complaint / Past History
Chief Complaint
Rt foot infection
History of Present Illness
Ms Tamayo is a 33 year old female with history of uncontrolled DM 1 on insulin (a1c 14.6 and hasnt been controlled on our labs since 2011), previous amputation of the right great toe who presented here for redness/swelling of the foot. Symptoms
began after she walked in a water park without shoes and developed blisters of distal 2nd and 34d digit. She treated this at home with triple antibiotics cream and band aids but with progressive redness and swelling extending to the foot. No
fevers or chills. Former smoker. Has prior courses of cefdinir and bactrim in the last 13 months listed on the medication rec. Doesnt follow up with podiatry regularly. Reports her PCP has tried to get her in with endocrinology but has not
success with her state insurance.
Tmax on arrival here 100.5 orally, BP stable, mildly tachycardic, wbc on arrival 10.2, now 7.6, hgb 12.8, plt 280, no left shift, cr 0.4, Na initially 132 now 135, a1c 14.6, crp 7.5, t bili 0.3, ast 24, alt 22, alk phos 98, hcg neg, MRI done formal
read pending 01/29 foot xray: my read my foreign body and no definite evidence of osteomyelitis, a superficial wound culture was done in the ER and showed no wbcs/no organisms on the gram stain. Currently on vancomycin only. ID is consulted for
assistance with management.
Past History
Additional Past Medical History:
back pain, migraines
Additional Past Surgical History:
Reports Orthopedic (S/p amputation of the right great toe at the level of the base of the proximal phalanx in January 2021
Allergy History:
adhesive tape Allergy (Verified 01/30/24 18:32)
Rash
oxycodone Allergy (Verified 01/30/24 18:32)
Itching & paranoia
tramadol Allergy (Verified 01/30/24 18:32)
Itching
Medications Reviewed: Yes
Social History
Tobacco: Former Smoker (stopped 2 years ago)
Alcohol: Occasional
Drug: None
Family History
Family History: Not Pertinent
Review of Systems
Review of Systems
General: Fever; Negative Chills
All systems: All other systems were reviewed and were negative
Vital Signs
Temp Pulse Resp BP Pulse Ox
98.4 F 102 16 126/86 95
01/31/24 07:00 01/31/24 07:00 01/31/24 07:00 01/31/24 07:00 01/31/24 07:00
Physical Exam
Physical Exam
Constitutional: No Acute Distress
Head: Other (gingivitis)
Cardiovascular: Regular Rate and S1/S2; Negative Murmur or Rub
Pulmonary: Clear and Symmetric; Negative Wheezes, Rales or Rhonchi
Gastrointestinal: Soft, Non Tender, Non Distended and Normal Bowel Sounds
Skin: Warm and Dry; Negative Rash or Jaundice
Wound: Other (eschars on the bottom of right digits 2 and 3, no probe to bone; toe 3 with marked swelling, erythema, warmth - 'sausage' digit, 2nd toe mildly erythematous and swollen, midfoot 2+ swelling no erythema)
Lab / Diagnostic Study Results
01/31/24 07:05
01/31/24 07:05
Abs Immat Gran (auto) 0.0 10^3/uL (0-0.05) 01/30/24 18:40
Absolute Neuts (auto) 6.8 10^3/uL (1.4-6.5) H 01/30/24 18:40
Absolute Lymphs (auto) 2.8 10^3/uL (1.2-3.4) 01/30/24 18:40
Absolute Monos (auto) 0.4 10^3/uL (0.1-0.6) 01/30/24 18:40
Absolute Basos (auto) 0.1 10^3/uL (0-0.2) 01/30/24 18:40
Immature Gran % 0.4 % (0-0.5) 01/30/24 18:40
Neutrophils % 66.5 % (42.2-75.2) 01/30/24 18:40
Lymphocytes % 27.2 % (20.5-51.1) 01/30/24 18:40
Monocytes % 4.3 % (1.7-9.3) 01/30/24 18:40
Eosinophils % 0.9 % (0-6) 01/30/24 18:40
Basophils % 0.7 % (0-2) 01/30/24 18:40
ESR 78 mm/hour (0-20) H 01/31/24 07:05
C-Reactive Protein 7.50 mg/L (0.0-10.00) 01/31/24 07:05
Microbiology Results
Micro:
01/30/24 21:20 Wound Culture - Pending
Toe Gram Stain - Preliminary
Assessment / Plan
Diabetic Foot Infection
Insulin requiring DM - not controlled
- ANITRA
- uncontrolled DM on insulin (a1c 14.6 and hasnt been controlled on our labs since 2012)
- discussed with attending Dr Brandt who kindly offered to look into providers who might be able to assist with improving DM2 control, she has had challenges getting an adjuster who will take her insurance
- emphasized risks of progressive amputations etc if DM does not come under control.
- pleased that shes stopped smoking and congratulated her on that success
- also note gingivitis on exam - recommend follow up with dentist
- elevated the foot
- continue vancomycin
- add unasyn
Patient at very high risk of eventual limb loss, CKD, stroke, etc if she remains an uncontrolled diabetic - discussed frankly with her and she expressed understanding.
Care Review
Plan reviewed with: Physician (Dr Brandt - Dm2 control)
[2024-01-31 12:08] LABS: Glucose - Point of Care 98 mg/dl (70-99)
[2024-01-31] MEDS: NOVOLOG FLEXPEN-HIGH RESISTANCE SC (12:24)
[2024-01-31] MEDS: UNASYN IV ×3 (12:31→23:13)
[2024-01-31 15:42] LABS: Glucose - Point of Care 174 mg/dl (70-99)
[2024-01-31 16:18] VITALS: BP 137/88
[2024-01-31] MEDS: LIPITOR 40 MG PO (17:24)
[2024-01-31] MEDS: LOVENOX 40 MG SC (17:31)
[2024-01-31 21:10] LABS: Glucose - Point of Care 101 mg/dl (70-99)
--- NOTE | 2024-01-31 22:11 | CON.SURG ---
Surgical Consultation
-
Chief Complaint / Past History
Chief Complaint
Rt foot infection
History of Present Illness
Ms Tamayo is a 33 year old female with history of uncontrolled DM 1 on insulin (a1c 14.6 and hasnt been controlled on our labs since 2011), previous amputation of the right great toe who presented here for redness/swelling of the foot. Symptoms
began after she walked in a water park without shoes and developed blisters of distal 2nd and 3rd digit. She treated this at home with triple antibiotics cream and band aids but with progressive redness and swelling extending to the foot. No
fevers or chills. Former smoker. Has prior courses of cefdinir and bactrim in the last 13 months listed on the medication rec. Doesnt follow up with podiatry regularly. Previous R hallux amp from 2020 when she developed wound and infection.
Past History
Additional Past Medical History:
back pain, migraines
Additional Past Surgical History:
Reports Orthopedic (S/p amputation of the right great toe at the level of the base of the proximal phalanx in January 2021
Allergy History:
adhesive tape Allergy (Verified 01/30/24 18:32)
Rashoxycodone Allergy (Verified 01/30/24 18:32)
Itching & paranoiatramadol Allergy (Verified 01/30/24 18:32)
Itching
Medications Reviewed: Yes
Social History
Tobacco: Former Smoker (stopped 2 years ago)
Alcohol: Occasional
Drug: None
Family History
Family History: Not Pertinent
Review of Systems
Review of Systems
General: Fever; Negative Chills
All systems: All other systems were reviewed and were negative
Vital Signs
Temp Pulse Resp BP Pulse Ox
98.4 F 102 16 126/86 95
01/31/24 07:00 01/31/24 07:00 01/31/24 07:00 01/31/24 07:00 01/31/24 07:00
Physical Exam
Physical Exam
Constitutional: No Acute Distress
Head: Other (gingivitis)
Cardiovascular: Regular Rate and S1/S2; Negative Murmur or Rub
Pulmonary: Clear and Symmetric; Negative Wheezes, Rales or Rhonchi
Gastrointestinal: Soft, Non Tender, Non Distended and Normal Bowel Sounds
Skin: Warm and Dry; Negative Rash or Jaundice
Wound: RLE exam: DP/PT pulses 2/4, capillary refill < 3 seconds. Superficial wounds to distal aspect of 2nd/3rd toes as well as sub MT1. Edema present, minor erythema, no purulence, negative probe to bone, no fluctuance or crepitus.
Lab / Diagnostic Study Results
01/31/24 07:05
01/31/24 07:05
Abs Immat Gran (auto) 0.0 10^3/uL (0-0.05) 01/30/24 18:40
Absolute Neuts (auto) 6.8 10^3/uL (1.4-6.5) H 01/30/24 18:40
Absolute Lymphs (auto) 2.8 10^3/uL (1.2-3.4) 01/30/24 18:40
Absolute Monos (auto) 0.4 10^3/uL (0.1-0.6) 01/30/24 18:40
Absolute Basos (auto) 0.1 10^3/uL (0-0.2) 01/30/24 18:40
Immature Gran % 0.4 % (0-0.5) 01/30/24 18:40
Neutrophils % 66.5 % (42.2-75.2) 01/30/24 18:40
Lymphocytes % 27.2 % (20.5-51.1) 01/30/24 18:40
Monocytes % 4.3 % (1.7-9.3) 01/30/24 18:40
Eosinophils % 0.9 % (0-6) 01/30/24 18:40
Basophils % 0.7 % (0-2) 01/30/24 18:40
ESR 78 mm/hour (0-20) H 01/31/24 07:05
C-Reactive Protein 7.50 mg/L (0.0-10.00) 01/31/24 07:05
Microbiology Results
Micro:
01/30/24 21:20 Wound Culture - Pending
Toe Gram Stain - Preliminary
Assessment / Plan
Patient is a poorly controlled diabetic and is at high risk of limb loss. MRI findings to follow 'Osteitis of the third digit distal phalanx with suspected early osteomyelitis of the distal phalangeal tip.
No septic arthritis or abscess.
Moderate diffuse subcutaneous edema about the ankle and dorsal foot may reflect cellulitis.' She presents with superficial wounds to her right foot with associated skin and soft tissue infection. Vascular status is intact.
-Recommend local wound care and trial antibiotics for skin and soft tissue infection
-Right toe wounds do not appear acutely infected requiring emergent surgical intervention. If patient fails antibiotics and worsens clinically, will consider toe amputations vs transmetatarsal amputation.
-Recommend rigid R forefoot offloading and rigid glycemic control
[2024-01-31 23:21] VITALS: BP 115/74
[2024-02-01] MEDS: LR 1000 IV (03:00)
[2024-02-01] MEDS: UNASYN IV ×3 (05:48→17:50)
[2024-02-01 07:00] VITALS: BP 125/84
[2024-02-01] MEDS: VANCOCIN 150 IV ×3 (07:13→21:12)
[2024-02-01 07:29] LABS: % Basophils 0.9 % (0-2); % Eosinophils 1.7 % (0-6); % Immature Granulocytes 0.1 % (0-0.5); % Lymphocytes 30.1 % (20.5-51.1); % Monocytes 6.8 % (1.7-9.3); % Neutrophils 60.4 % (42.2-75.2); Absolute Basophils 0.1 10^3/uL (0-0.2); Absolute Eosinophils 0.1 10^3/uL (0-0.7); Absolute Lymphocytes 2.3 10^3/uL (1.2-3.4); Absolute Monocytes 0.5 10^3/uL (0.1-0.6); Absolute Neutrophils 4.6 10^3/uL (1.4-6.5); Hematocrit 32.9 % (37.0-47.0); Hemoglobin 11.3 g/dL (12.0-16.0); Mean Corp Hgb Conc. 34.3 g/dL (33.0-37.0); Mean Corpuscular Hgb 30.1 pg (27.0-31.0); Mean Corpuscular Volume 87.5 fL (81.0-99.0); Mean Platelet Volume 10.1 fL (7.4-10.4); Nucleated Red Blood Cells % 0 %; Platelet Count 296 10^3/uL (130-400); Red Blood Cell Count 3.76 10^6/uL (4.20-5.40); Red Cell Dist. Width 13.7 % (11.5-14.5); White Blood Cell Count 7.6 10^3/uL (4.8-10.8)
[2024-02-01] MEDS: TYLENOL 650 MG PO (08:00)
[2024-02-01 08:04] LABS: Blood Urea Nitrogen 11 mg/dl (7-17); Calcium 8.7 mg/dl (8.4-10.2); Carbon Dioxide 22 mmol/L (22-30); Chloride 107 mmol/L (98-107); Estimated Creatinine Clearance 114 ml/min; Glucose 239 mg/dl (70-99); Potassium 4.4 mmol/L (3.5-5.1); Sodium 134 mmol/L (135-145); eGFR > 60.00
[2024-02-01 08:41] LABS: Glucose - Point of Care 296 mg/dl (70-99)
[2024-02-01] MEDS: NOVOLOG FLEXPEN 14 UNITS SC ×3 (09:08→17:50)
[2024-02-01] MEDS: NOVOLOG FLEXPEN-HIGH RESISTANCE 7 UNITS SC (09:09)
[2024-02-01 10:49] LABS: Erythrocyte Sed Rate 69 mm/hour (0-20)
--- NOTE | 2024-02-01 11:16 | W.PN.HOSP.TC ---
Today's Communication/Plan
-
Continue IV broad-spectrum antibiotics
Continue to monitor glucose, consider starting long-acting insulin
Continue with statin therapy
Follow-up podiatry and ID recs
Assessment / Plan
Assessment / Plan
#Osteomyelitis of distal phalangeal tip, right foot
#Nonpurulent cellulitis of right foot
#H/O poorly controlled type 1 diabetes mellitus
-Open wounds plantar surface of toes 2,3; H/O amputation of great toe at the level of the proximal phalanx base
-Has a previous history of polymicrobial infections with previous wound culture MSSA isolated
-MRI of the foot yesterday did show evidence of early osteomyelitis of the distal phalangeal tip
-Currently receiving broad-spectrum IV antibiotics with vancomycin and Unasyn per ID recs
-Podiatry following, recommending antibiotic trial before any surgical intervention
Plan
-Continue IV vancomycin and Unasyn for broad-spectrum coverage
-Follow-up wound cultures and sensitivities
-Trend inflammatory markers daily
-Strict right foot offloading
-Strict glycemic control as below
#Hyperglycemia due to Rt diabetic foot Cellulitis
#Type 1 Diabetes mellitus -- A1c 14.6% x 12 years, question compliance
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
-Question compliance to regimen; listed home meds include insulin glargine 20 units HS, lispro 5 units AC
-Reconciliation shows that she is on insulin lispro 14 units with meals, as well as ISS, no basal dosing
-Since receiving her 14 unit insulin lispro AC regimen here, blood glucose consistently 100-175
-Besides neuropathy, no signs of other microvascular disease; arterial study yesterday without PAD
Plan
-Continue with insulin lispro 14 units with meals and ISS
-Consider starting low-dose Lantus for long-acting insulin if needed
-Continue to monitor Accu-Cheks, glucose goal <200, avoid hypoglycemia
-Continue with high intensity statin
-Will need close outpatient follow-up with endocrinology
#H/O Torn meniscus of lt Knee
#Pseudohyponatremia
#Former smoker -- stopped two years ago
DVT Px: LMWH
CODE STATUS: Full code
Diet: 1800 -calorie/day, carb controlled
Anticipated Discharge: 24 - 48 hours
Subjective/Interval History
-
Date of Service: February 01, 2024
Seen and examined at bedside. States that the swelling of her right foot is improved, denies any acute complaints. States she just feels fatigued
Objective Data
-
Labs:
Laboratory Results
02/01/24
06:50
WBC 7.6
Hgb 11.3 L
Hct 32.9 L
Plt Count 296
Sodium 134 L
Potassium 4.4
Chloride 107
Carbon Dioxide 22
BUN 11
Creatinine 0.4 L
Glucose 239 H
Calcium 8.7
Vital Signs:
Vital Signs
Temp Pulse Resp BP Pulse Ox
98.9 F 111 16 125/84 96
02/01/24 07:00 02/01/24 07:00 02/01/24 07:00 02/01/24 07:00 02/01/24 07:00
I&O
01/31/24 02/01/24 02/02/24
06:59 06:59 06:59
Intake Total 540 / 540 2240 / 2240
Balance 540 / 540 2240 / 2240
Review of Systems
-
History Source: Patient
All other systems: Reviewed and negative
Constitutional: Reports No Symptoms
Respiratory: Reports No Symptoms
Cardiac: Reports No Symptoms
Abdomen/GI: Reports No Symptoms
Genitourinary: Reports No Symptoms
Musculoskeletal: Reports No Symptoms
Skin: Reports No Symptoms
Neuro: Reports No Symptoms
Endocrine: Reports No Symptoms
Hematologic / Lymphatic: Reports No Symptoms
Physical Exam
-
General: Well Nourished, No Apparent Distress and Comfortable
HEENT: Normocephalic, Atraumatic, Moist Mucous Membranes and Anicteric; Negative Good Dentition
Respiratory: Clear to Auscultation and Non Labored Respirations
Cardiac: Regular Rhythm, S1/S2 and Tachycardic; Negative Murmur, Rub or Gallop
GI: Soft, Nontender, Nondistended and Normal Bowel Sounds
Musculoskeletal: No Clubbing, No Cyanosis and Edema, Right Lower Extrem (1+ foot edema, improving)
Skin: Warm, Dry and Other (Ulcerative lesions on second and third digit of right foot, metatarsal pad with no obvious purulence, no surrounding erythema or induration); Negative Rash or Jaundice
Neuro: AO x 3, Nonfocal/Grossly Intact and Central Nerve's Intact
Data Reviewed
-
Diagnostic Radiology: Report Reviewed by me
Ultrasound: Report Reviewed by me
Labs: Labs Reviewed by me
[2024-02-01 12:08] LABS: Glucose - Point of Care 197 mg/dl (70-99)
--- NOTE | 2024-02-01 13:29 | CM ---
Reviewed chart, met with patient to obtain information for assessment. Also received consult to determine if there is a local [employer] who takes patient's insurance. Will research.
Patient lives with her father and daughter in an apartment which has 14 steps to get up into. She described herself as independent with all of her ADLs personal care, dressing, bathing and ambulates without device. 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
clean and do laundry. Patient takes an uber to her appointments as she does not drive.
She denied any DME in her home.
She has had VN services in the past through .
She has not been to a SNF.
Patient has a prescription plan and uses [facility] in [place].
Her PCP is, Cornelius Robledo.
Patient stated that she feels she will be able to return home when she is stable for discharge.
Plan: Case management will continue to follow and assist with discharge planning. Home with family.
[2024-02-01] MEDS: NOVOLOG FLEXPEN-HIGH RESISTANCE 2 UNITS SC (13:31)
--- NOTE | 2024-02-01 14:21 | PHA.VAN.FU ---
Addendum entered and electronically signed by Mica Sims RPH 02/01/24 14:41:
Consult performed in conjunction with pharmacy benefits coordinator. Agree with assessment and plan below.
Original Note:
Vancomycin Assessment / Plan
- Assessment
Renal Function: Stable
WBC's are: WNL
In the past 24 hrs, patient has been: Afebrile
Concomitant Antimicrobials: Ampicillin/Sulbactam
- Dosing Plan
Continue: vanc 750mg q8h
- Monitoring Plan
Peak Level: 02/02/24 00:30
Trough Level: 02/02/24 05:30
Monitoring Comments: levels will be drawn after 5th maintenance dose
- Follow Up
Pharmacy will continue to follow.
Vancomycin Follow UP
- -
Patient Age: 33
Patient Sex: Female
Vancomycin Day #: 3
Indication: Skin And Soft Tissue
Requesting Provider: Dr. Garrido
Pertinent Antimicrobial Allergies:
no pertinent antibiotic history
Height / Weight:
Height 5 ft 4 in
Actual Weight 70.477 kg
Pertinent Past Medical History: DM I
- Vital Signs / Lab Results
Temp Pulse Resp BP Pulse Ox
98.9 F 111 16 125/84 96
02/01/24 07:00 02/01/24 07:00 02/01/24 07:00 02/01/24 07:00 02/01/24 07:00
Lab Results - Hematology
01/30/24 01/31/24 02/01/24
18:40 07:05 06:50
WBC 10.2 7.6 7.6
Lab Results - Chemistry
01/30/24 01/31/24 02/01/24
18:40 07:05 06:50
BUN 16 13 11
Creatinine 0.7 0.4 L 0.4 L
Estimated Creat Clear 114 114
Albumin 3.7
Microbiology Results
01/30/24 21:20 Wound Culture - Preliminary
Toe Gram Stain - Preliminary
--- NOTE | 2024-02-01 14:34 | W.PN.ID1 ---
Addendum entered and electronically signed by Hazel Monteiro MD 02/01/24 17:12:
S:
afebrile
foot elevated, still swollen
'Im bored'
O:
VSS
Exam: in addition to resident exam
Extremities: right midfoot swollen but no erythema, warmth or tendernes; the 3rd digit remains mildly red and swollen
wbc: 7.6, cr 0.4, glucose 239
ANITRA: patent ANITRA without stenosis
MRI: suspected early osteomyelitis of the distal phalangeal tip of 3rd digit
wound cx: no wbc, no organisms
A&P
Suspected early osteomyelitis of the distal phalangeal tip of 3rd digit
Diabetic Foot Infection
Insulin requiring DM - not controlled
Noncompliance
- ANITRA - normal
- uncontrolled DM on insulin (a1c 14.6 and hasnt been controlled on our labs since 2011)
- case packer and sealer to please see if there is an manager business planning who will take her insurance
- emphasized risks of progressive amputations etc if DM does not come under control.
- also note gingivitis on exam - recommend follow up with dentist
- elevated the foot
- continue vancomycin and unasyn today, if continued clinical improvement tomorrow will plan a 6 week course of doxycycline/augmentin, follow up with PCP
Original Note:
Date of Service
Date of Service: February 01, 2024
Today's Communication
Continue IV Vancomycin and Unasyn, pending wound culture
Assessment / Plan
Diabetic Foot Infection
Insulin requiring DM - not controlled
- Periph LE arterial US: no evidence of hemodynamically significant stenosis.
- MRI R foot: Osteitis of the third digit distal phalanx with suspected early osteomyelitis of the distal phalangeal tip. No septic arthritis or abscess
- uncontrolled DM on insulin (a1c 14.6 and hasnt been controlled on our labs since 2011)
-She has had challenges getting an manager business planning who will take her insurance. CM to explore resources to aid access
- emphasized risks of progressive amputations etc if DM does not come under control.
- pleased that shes stopped smoking and congratulated her on that success
- also note gingivitis on exam - recommend follow up with dentist
- elevate foot
- continue vancomycin and Unasyn, pending would culture result
Patient at very high risk of eventual limb loss, CKD, stroke, etc if she remains an uncontrolled diabetic - Dr. Monteiro discussed frankly with her and she expressed understanding.
Chief Complaint
-: Other (R foot pain and swelling)
Subjective / Review of Systems
MRI of foot and lower extremity arterial US
Review of Systems: No Fever, No Chills and No Joint Pain
Vital Signs / Physical Exam
Vital Signs
Vital Signs
Temp Pulse Resp BP Pulse Ox
98.9 F 111 16 125/84 96
02/01/24 07:00 02/01/24 07:00 02/01/24 07:00 02/01/24 07:00 02/01/24 07:00
Physical Exam
Constitutional: No Acute Distress and Comfortable
Oropharyngeal: Poor Dention (Extensive gum disease)
Cardiovascular: Regular Rate and S1/S2; Negative Murmur or Rub
Pulmonary: Clear and Non Labored; Negative Wheezes, Rales or Rhonchi
Extremities: Other (redness and swelling of third digit of R foot. 1+ edema of right foot. )
Wound: Other (small necrotic wounds of plantar surface of distal R 2nd and 3rd digits. )
Neurological: Awake, Alert, No Motor Deficits and Other (soft touch sensation preserved in bilateral feet)
Psychological: Calm
Lines: PIV
Objective Data
Lab Data
Lab Results
02/01/24 06:50
02/01/24 06:50
ESR 69 mm/hour (0-20) H 02/01/24 06:50
Estimated Creat Clear 114 ml/min 02/01/24 06:50
Total Bilirubin 0.3 mg/dl (0.2-1.3) 01/30/24 18:40
AST 24 U/L (14-36) 01/30/24 18:40
ALT 22 U/L (0-35) 01/30/24 18:40
Alkaline Phosphatase 98 U/L (38-126) 01/30/24 18:40
C-Reactive Protein 5.10 mg/L (0.0-10.00) 02/01/24 06:50
Most recent labs reviewed.
Micro Results:
01/30/24 21:20 Wound Culture - Preliminary
Toe Gram Stain - Preliminary
[2024-02-01 15:00] VITALS: BP 126/87
[2024-02-01] MEDS: LR IV (16:01)
[2024-02-01 16:33] LABS: Glucose - Point of Care 118 mg/dl (70-99)
[2024-02-01] MEDS: NOVOLOG FLEXPEN-HIGH RESISTANCE SC (16:44)
[2024-02-01] MEDS: LIPITOR 40 MG PO (17:51)
[2024-02-01] MEDS: LOVENOX 40 MG SC (17:51)
[2024-02-01 21:11] LABS: Glucose - Point of Care 92 mg/dl (70-99)
[2024-02-01 23:45] VITALS: BP 126/83
[2024-02-02] MEDS: UNASYN IV ×2 (00:41→05:05)
[2024-02-02 01:26] LABS: Vancomycin Peak 18.2 ug/ml (18-26)
[2024-02-02] MEDS: TYLENOL 650 MG PO (05:08)
[2024-02-02 06:41] LABS: Hematocrit 33.6 % (37.0-47.0); Hemoglobin 11.5 g/dL (12.0-16.0); Mean Corp Hgb Conc. 34.2 g/dL (33.0-37.0); Mean Corpuscular Hgb 30.4 pg (27.0-31.0); Mean Corpuscular Volume 88.9 fL (81.0-99.0); Mean Platelet Volume 9.8 fL (7.4-10.4); Platelet Count 271 10^3/uL (130-400); Red Blood Cell Count 3.78 10^6/uL (4.20-5.40); Red Cell Dist. Width 13.7 % (11.5-14.5); White Blood Cell Count 7.5 10^3/uL (4.8-10.8)
[2024-02-02 06:57] LABS: % Basophils 0.9 % (0-2); % Immature Granulocytes 0.3 % (0-0.5); % Lymphocytes 31.7 % (20.5-51.1); % Monocytes 6.8 % (1.7-9.3); % Neutrophils 58.3 % (42.2-75.2); Absolute Basophils 0.1 10^3/uL (0-0.2); Absolute Eosinophils 0.2 10^3/uL (0-0.7); Absolute Lymphocytes 2.4 10^3/uL (1.2-3.4); Absolute Monocytes 0.5 10^3/uL (0.1-0.6); Absolute Neutrophils 4.4 10^3/uL (1.4-6.5); Nucleated Red Blood Cells % 0 %
[2024-02-02 07:00] LABS: Vancomycin Trough 11.6 ug/ml (5-20)
[2024-02-02 07:05] LABS: Blood Urea Nitrogen 11 mg/dl (7-17); Calcium 9.3 mg/dl (8.4-10.2); Carbon Dioxide 26 mmol/L (22-30); Chloride 106 mmol/L (98-107); Estimated Creatinine Clearance 114 ml/min; Glucose 284 mg/dl (70-99); Potassium 5.1 mmol/L (3.5-5.1); Sodium 135 mmol/L (135-145); eGFR > 60.00
[2024-02-02 07:09] LABS: C-Reactive Protein < 5.00 mg/L (0.0-10.00)
[2024-02-02 07:10] LABS: Erythrocyte Sed Rate 76 mm/hour (0-20)
[2024-02-02 07:40] VITALS: BP 146/104
[2024-02-02] MEDS: VANCOCIN 150 IV (07:42)
[2024-02-02 07:44] LABS: Glucose - Point of Care 315 mg/dl (70-99)
--- NOTE | 2024-02-02 07:56 | W.PN.ID1 ---
Addendum entered and electronically signed by Hazel Monteiro MD 02/02/24 14:32:
I saw and evaluated the patient. I reviewed the resident�s note and agree with findings and plan as documented in the resident�s note with the following additions/corrections:
S:
afebrile
midfoot swelling resolved
O
VSS
Exam: Gen: awake, nontoxic
Extr: right foot midfoot no longer swollen, 3rd digit mildly erythematous, mildly swollen, callous on the 2nd and 3rd digits; 2nd toe not red swollen or tender; on the L foot great toe and 3rd digits also with callouses, no erythema warmth, swelling
or tenderness
DLOA: PIVs: no erythema, warmth or tenderness
wbc: 7.6, cr 0.4, glucose 239
ANITRA: patent ANITRA without stenosis
MRI: suspected early osteomyelitis of the distal phalangeal tip of 3rd digit
wound cx: no wbc, no organisms
A&P
Suspected early osteomyelitis of the distal phalangeal tip of 3rd digit
Diabetic Foot Infection
Insulin requiring DM - not controlled
- ANITRA - normal
- uncontrolled DM on insulin (a1c 14.6 and hasnt been controlled on our labs since 2011)
- case supervisor to please see if there is an supervisor counseling and guidance who will take her insurance - if not encouraged her to rediscuss with her PCP. If case supervisor/PCP unable to locate supervisor counseling and guidance then patient might ask if one of PCPs partners is able
to assist with DM management.
- emphasized risks of progressive amputations etc if DM does not come under control.
- also note gingivitis on exam - recommend follow up with dentist
- elevated the foot
- switched to doxycycline and augmenting to finish 6 week course
- follow up with me in 4-6 weeks
Patient at very high risk of eventual limb loss, CKD, stroke, etc if she remains an uncontrolled diabetic - discussed frankly with her and she expressed understanding.
Original Note:
Date of Service
Date of Service: February 02, 2024
Today's Communication
Continue IV ABX. Will convert to oral ABX therapy for 6 weeks
Assessment / Plan
Diabetic Foot Infection
Osteitis with suspected early osteomyelitis of distal phalangeal tip of 3rd digit of r foot
Insulin requiring DM - not controlled
Non-compliance
- Periph LE arterial US: no evidence of hemodynamically significant stenosis.
- MRI R foot: Osteitis of the third digit distal phalanx with suspected early osteomyelitis of the distal phalangeal tip. No septic arthritis or abscess
- ANITRA: Patent bilaterally, with no stenosis
- Wound culture: in progress, NGTD. Gram stain no organisms seen
- uncontrolled DM on insulin (a1c 14.6 and hasn't been controlled on our labs since 2011)
-She has had challenges getting an supervisor counseling and guidance who will take her insurance. CM to explore access to supervisor counseling and guidance
- emphasized risks of progressive amputations etc if DM does not come under control.
- pleased that shes stopped smoking and congratulated her on that success
- also note gingivitis on exam - recommend follow up with dentist
- elevate foot
- On vancomycin and Unasyn, Will convert to oral 6 week course of doxycycline/augmentin . To follow up with infectious disease in 4-6 weeks
Patient at very high risk of eventual limb loss, CKD, stroke, etc if she remains an uncontrolled diabetic - Dr. Monteiro discussed frankly with her and she expressed understanding.
Chief Complaint
-: Other (R foot pain and swelling)
Subjective / Review of Systems
Patient feels better today. Is positive about pursuing better diabetic care
Review of Systems: No Joint Pain (no R foot pain)
Vital Signs / Physical Exam
Vital Signs
Vital Signs
Temp Pulse Resp BP Pulse Ox
97.8 F 110 16 146/104 98
02/02/24 07:40 02/02/24 07:40 02/02/24 07:40 02/02/24 07:40 02/02/24 07:40
Physical Exam
Constitutional: No Acute Distress and Comfortable
Cardiovascular: Regular Rate and S1/S2; Negative Murmur or Rub
Pulmonary: Clear and Non Labored; Negative Wheezes, Rales or Rhonchi
Extremities: Other (mild redness and swelling of third digit of R foot. 1+ edema of dorsal right foot. Small Calluses noted on lateral plantar surface of left great toe, and planter tip of third digit of left foot)
Skin: Warm and Dry
Wound: Other (small eschar noted on plantar surface of distal phalanx - R 2nd and 3rd digits)
Neurological: Awake, Alert and Other (sensation preserved in R foot)
Psychological: Calm
Objective Data
Lab Data
Lab Results
02/02/24 06:20
02/02/24 06:20
ESR 76 mm/hour (0-20) H 02/02/24 06:20
Estimated Creat Clear 114 ml/min 02/02/24 06:20
Total Bilirubin 0.3 mg/dl (0.2-1.3) 01/30/24 18:40
AST 24 U/L (14-36) 01/30/24 18:40
ALT 22 U/L (0-35) 01/30/24 18:40
Alkaline Phosphatase 98 U/L (38-126) 01/30/24 18:40
C-Reactive Protein < 5.00 mg/L (0.0-10.00) 02/02/24 06:20
Most recent labs reviewed.
Micro Results:
01/30/24 21:20 Wound Culture - Preliminary
Toe Gram Stain - Preliminary
[2024-02-02] MEDS: HYLENEX 150 UNITS SC (08:41)
--- NOTE | 2024-02-02 09:02 | VATNOTE ---
Paged to assess infiltrate approximately 20 minutes after vancomycin infusion had started. Heat applied immediately and extremity elevated. Approximately 7 cm x 10 cm area of swelling and, according to pt, mild pain noted. Pt also notes itching.
Contacted MD for hylenex order, verbal received, placed in chart, and entered. Pharmacy called to notify of order. IV discontinued and restarted in RUE. Upon receipt of hylenex administered to left upper extremity per protocol. Heat applied to LUE
and elevated. Will continue to monitor.
--- NOTE | 2024-02-02 10:15 | VATNOTE ---
After Hylenex administration, pt's RUE is WNL. No redness, swelling, pain, or itching noted. Infiltration resolved.
[2024-02-02 10:28] LABS: Glucose - Point of Care 342 mg/dl (70-99)
[2024-02-02] MEDS: NOVOLOG FLEXPEN 14 UNITS SC (10:52)
[2024-02-02] MEDS: NOVOLOG FLEXPEN-HIGH RESISTANCE 10 UNITS SC (10:53)
--- NOTE | 2024-02-02 10:59 | W.PN.HOSP.TC ---
Today's Communication/Plan
-
Transition to oral antibiotics
Discharge planning
Assessment / Plan
Assessment / Plan
#Osteomyelitis of distal phalangeal tip, right foot
#Nonpurulent cellulitis of right foot
#H/O poorly controlled type 1 diabetes mellitus
-Open wounds plantar surface of toes 2,3; H/O amputation of great toe at the level of the proximal phalanx base
-Has a previous history of polymicrobial infections with previous wound culture MSSA isolated
-MRI of the foot yesterday did show evidence of early osteomyelitis of the distal phalangeal tip
-Currently receiving broad-spectrum IV antibiotics with vancomycin and Unasyn per ID recs
-Has responded to IV antibiotics well, no growth in cultures taken
Plan
-Transition from IV antibiotics to doxycycline and Augmentin to complete 6 weeks
-Follow-up with infectious disease specialist 6 weeks office
-Strict glycemic control as below
#Hyperglycemia due to Rt diabetic foot Cellulitis
#Type 1 Diabetes mellitus -- A1c 14.6% x 12 years, question compliance
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
-Question compliance to regimen; listed home meds include insulin glargine 20 units HS, lispro 5 units AC
-Reconciliation shows that she is on insulin lispro 14 units with meals, as well as ISS, no basal dosing
-Since receiving her 14 unit insulin lispro AC regimen here, blood glucose consistently 100-175
-Besides neuropathy, no signs of other microvascular disease; arterial study yesterday without PAD
Plan
-Continue with insulin lispro 14 units with meals and ISS
-Will start 10 units of Lantus insulin nightly at DC to compensate for ISS
-Continue to monitor home glucoses regularly and record values
-Continue with high intensity statin
-Will need close outpatient follow-up with endocrinology
#H/O Torn meniscus of lt Knee
#Pseudohyponatremia
#Former smoker -- stopped two years ago
DVT Px: LMWH
CODE STATUS: Full code
Diet: 1800 -calorie/day, carb controlled
Anticipated Discharge: Today
Subjective/Interval History
-
Date of Service: February 02, 2024
Seen and examined at bedside. States she feels well, questioning when she can leave the hospital. Denies any fevers or chills, no pain in the foot swelling has completely resolved. Denies chest pain, shortness of breath, nausea, vomiting,
diarrhea, abnormal bleeding or bruising, urinary issues
Objective Data
-
Labs:
Laboratory Results
02/02/24
06:20
WBC 7.5
Hgb 11.5 L
Hct 33.6 L
Plt Count 271
Sodium 135
Potassium 5.1
Chloride 106
Carbon Dioxide 26
BUN 11
Creatinine 0.5 L
Glucose 284 H
Calcium 9.3
Vital Signs:
Vital Signs
Temp Pulse Resp BP Pulse Ox
97.8 F 110 16 146/104 98
02/02/24 07:40 02/02/24 07:40 02/02/24 07:40 02/02/24 07:40 02/02/24 07:40
I&O
02/01/24 02/02/24 02/03/24
06:59 06:59 06:59
Intake Total 2240 / 2240 2245 / 2245
Balance 2240 / 2240 2245 / 2245
Review of Systems
-
History Source: Patient
All other systems: Reviewed and negative
Physical Exam
-
General: Well Nourished, No Apparent Distress and Comfortable
HEENT: Normocephalic, Atraumatic and Moist Mucous Membranes; Negative Good Dentition
Respiratory: Clear to Auscultation and Non Labored Respirations
Cardiac: Regular Rhythm and S1/S2
GI: Soft, Nontender, Nondistended and Normal Bowel Sounds
Musculoskeletal: No Clubbing, No Cyanosis and No Edema
Skin: Warm, Dry and Other (No purulence or fluctuance of the right foot, improved healing of skin at sites of injury); Negative Rash
Neuro: AO x 3, Nonfocal/Grossly Intact and Central Nerve's Intact
Data Reviewed
-
Labs: Labs Reviewed by me
--- NOTE | 2024-02-02 11:22 | W.DCSUMMARY ---
Discharge Summary
Discharge Data
Date of Admission: 01/30/24
Date of Discharge: 02/02/24
-
Pending Results: No
Hospital Course
Presented to the hospital with foot ulcerative lesions with pain and erythema. Diagnosed with cellulitis, x-ray did not show any evidence of osteomyelitis though MRI of the right foot did show early signs of osteomyelitis at the distal ends of the
metatarsals. Was started on broad-spectrum IV antibiotics with Unasyn and vancomycin. Clinically improved with multiple days of IV antibiotics. Was discharged on 6-week regimen of doxycycline and Augmentin twice daily with plan to follow-up in ID
office in 4 weeks.
Also with uncontrolled type 1 diabetes mellitus and A1c 14.6% which has been near this range for 10 years. Arterial study here did not show any signs of PAD though she does remain high risk. Her blood sugars were well-controlled on 14 units
insulin lispro with meals and additional ISS coverage. At discharge will transition to 14 units AC lispro and add 10 units insulin glargine. Provided referral for endocrinology, case management to provide resources for possible discounted rates or
gas controller that accepts her insurance prior to discharge.
Discharge Plan
-
Patient Disposition: Home (Routine Discharge)
Discharge Diagnosis/Procedures: Osteonecrosis of right foot
Cellulitis
Uncontrolled type 1 diabetes mellitus
Condition: Fair
Diet: Diabetic, Carb Controlled
Additional Diets: Food/drink high in carbohydrates: Pasta, potatoes, bread, rice, potato chips, candy, pastries/cakes/muffins, soda, sweet teas, juices
Activity: As tolerated
Driving Restrictions: As prior to admission
Instructions: Diabetes and infections, Diabetes and diet
Referrals:
Naty Pitt MD [Consulting Staff] - (transplant worker at hospital to provide resources for obtaining endocrine referral with your insurance)
Cornelius Hendrix MD [Family Provider] -
Hazel Monteiro MD [Active] - in four to six weeks
Additional Discharge Medication Instructions: Take Augmentin 875�125 twice daily for 6 weeks after discharge
Take doxycycline 100 mg twice daily for 6 weeks after discharge
Start atorvastatin 40 mg nightly
Take insulin glargine (Lantus) 10 units nightly
Take insulin lispro (Humalog) 14 units with meals
Monitor your blood sugars with meals and nightly, record in a notebook, take to PCP and endocrine's office
Prescriptions:
New
atorvastatin 40 mg Tablet
40 mg PO QPM 30 Days Qty: 30 0RF
insulin aspart U-100 100 unit/mL (3 mL) Insulin Pen
14 unit SC AC 30 Days Qty: 12.6 0RF
doxycycline hyclate 100 mg capsule
100 mg PO BID 42 Days Qty: 84 0RF
amoxicillin-pot clavulanate [Augmentin] 500-125 mg tablet
1 tab PO BID 42 Days Qty: 84 0RF
(DME) blood-glucose meter [Accu-Chek Guide Glucose Meter] Misc
Qty: 1 0RF
Rx Instructions:
As Directed
(DME) Accu-Chek Guide test strips Strip
Qty: 200 0RF
Rx Instructions:
As Directed
Continued
Excedrin Migraine 250-250-65 mg Tablet
3 tab PO DAILYPRN PRN (Reason: migraines)
Changed
insulin glargine [Lantus Solostar U-100 Insulin] 100 unit/mL (3 mL) Insulin Pen
10 unit SC HS 30 Days Qty: 3 0RF
Discontinued
insulin lispro [Humalog KwikPen Insulin] 100 UNIT/ML insulin pen
5 units SC AC
Discharge Orders:
Discharge Patient (As Directed); Ordered 02/02/24
Ordered By: Cade Rogers
Discharge Date and Time
Print Language: [place]
--- NOTE | 2024-02-02 11:33 | CM ---
Spoke with attending who stated that patient is medically cleared. Attending asked CM to determine if there is a practice that will take patient's insurance. Placed calls to [facility] but had to leave voice mail. Checked L[facility] Grimes
however also had to leave a voice mail. Updated patient that CM will continue to look. She stated that [place] especially as she does not drive.
Plan: Case management will continue to follow and assist [facility] discharge planning. Home f/u with Endocrinology. Will attempt to determine if there is a practice that takes her insurance.
--- NOTE | 2024-02-02 11:37 | PHA.VAN.FU ---
Addendum entered and electronically signed by Mica Sims RPH 02/02/24 12:14:
Consult performed in conjunction with pharmacy technician per diem. Agree with assessment and plan below
Original Note:
Vancomycin Assessment / Plan
- Assessment
Renal Function: Stable
WBC's are: WNL
In the past 24 hrs, patient has been: Afebrile
Concomitant Antimicrobials: AMP/SULB
- Assessment - Therapeutic Drug Monitoring
Extrapolated Cmax (mcg/mL): 22.6
Peak level was drawn: Appropriately (draw about 2.7hr after end of prior infusion)
Extrapolated Cmin (mcg/mL): 12.7
Trough Drawn: Appropriately
Levels were drawn: At steady state (drawn after 6th maintenance dose)
Calculated AUC (mcg*h/mL): 414
Calculated ke: 0.0821
Calculated half life (H): 8.4
Calculated Vd (L): 66.07
Calculated Vanc CL (ml/min): 90.45
- Dosing Plan
Adjust Regimen to: Vanc 1250mg q12h Starting 02/02 0600
New Regimen Predicts: AUC (489), Peak (30.2), Trough (12.7)
Dosing Comments: d'c 750mg q8h after 2200 dose tonight
adjusting regimen to q12h based on the T1/2
- Monitoring Plan
No level(s) ordered at this time: consider in the next few days
- Follow Up
Pharmacy will continue to follow.
Vancomycin Follow UP
- -
Patient Age: 33
Patient Sex: Female
Vancomycin Day #: 4
Indication: Skin And Soft Tissue
Requesting Provider: Dr. Garrido
Pertinent Antimicrobial Allergies:
no pertinent antibiotic history
Height / Weight:
Height 5 ft 4 in
Actual Weight 70.477 kg
Pertinent Past Medical History: DM I
- Vital Signs / Lab Results
Temp Pulse Resp BP Pulse Ox
97.8 F 110 16 146/104 98
02/02/24 07:40 02/02/24 07:40 02/02/24 07:40 02/02/24 07:40 02/02/24 07:40
Lab Results - Hematology
01/30/24 01/31/24 02/01/24
18:40 07:05 06:50
WBC 10.2 7.6 7.6
02/02/24
06:20
WBC 7.5
Lab Results - Chemistry
01/30/24 01/31/24 02/01/24
18:40 07:05 06:50
BUN 16 13 11
Creatinine 0.7 0.4 L 0.4 L
Estimated Creat Clear 114 114
Albumin 3.7
02/02/24
06:20
BUN 11
Creatinine 0.5 L
Estimated Creat Clear 114
Albumin
Microbiology Results
01/30/24 21:20 Wound Culture - Preliminary
Toe Gram Stain - Preliminary
Therapeutic Drug Monitoring
Vancomycin Peak 18.2 ug/ml (18-26) 02/02/24 00:51
Vancomycin Trough 11.6 ug/ml (5-20) 02/02/24 06:20
[2024-02-02 11:53] VITALS: BP 153/104
== END 2024-02-02 12:15 | disposition home or self-care (01) | DRG 872 ==
LOC: 3 WEST ACU 22:11
PROVIDERS: ADMITTING PHYSICIAN Internal Medicine; ATTENDING PHYSICIAN Internal Medicine; CONSULT PHYSICIAN Student in an Organized Health Care Education/Training Program; EMERGENCY PHYSICIAN Emergency Medicine; FAMILY PHYSICIAN Internal Medicine; OTHER PHYSICIAN Student in an Organized Health Care Education/Training Program
DX: A41.9 Sepsis, unspecified organism (principal); L03.115 Cellulitis of right lower limb; M87.9 Osteonecrosis, unspecified; M86.8X7 Other osteomyelitis, ankle and foot; E10.65 Type 1 diabetes mellitus with hyperglycemia; E10.628 Type 1 diabetes mellitus with other skin complications
CPT/HCPCS: 73630; 73720; 80048; 80053; 80202; 82962; 83036; 84703; 85025; 85027; 85652; 86140; 87070; 87147; 87186; 87205; 93005; 93922; 93925; 99285; A9575

== ENCOUNTER 2024-09-15 12:20 | Emergency (ER) | payer OTHER, SELFPAY ==
[2024-09-15 12:23] VITALS: BP 189/128
[2024-09-15] MEDS: MOTRIN 400 MG PO (13:46)
[2024-09-15] MEDS: BACTRIM DS 800 MG/160 MG 1 TABLET PO (13:46)
[2024-09-15 13:47] VITALS: BP 136/100
--- NOTE | 2024-09-17 13:50 | ED.GENMED ---
History of Present Illness
General
Chief Complaint: Skin Problem
Source: patient
Exam Limitations: none
Time Seen by Provider: 09/15/24 12:29
Nursing documentation reviewed up to this point in time: agreed with
History of Present Illness
History of Present Illness:
33-year-old female with past medical history of diabetes on insulin who presents emergency department today with concerns of an abscess to her left posterior thigh. Patient reports that she first noticed this around 2 days ago. Patient reports
that she has gotten these before and has a history of diabetes and states that she is prone to skin infections. Patient states that she has had a lot going on in her life and reports that her blood sugars have not been the best control recently.
Patient denies any fevers or chills. Patient denies any spreading of the redness or lymphadenopathy. Patient states that the wound has started to drain on its own.
Past History
Past History
ED Past Medical History: IDDM, Other (gestational diabetes) and Other (Low back pain)
ED Past Surgical History: Other (Myringotomy tubes)
Social History
Tobacco: Former smoker
Alcohol: Occasional
Drug: None
Personal: Single
Living: with family
Employment: Employed ([employer])
Family History
Family History: Diabetes
Review of Systems
Review of Systems
All Other Systems: ROS reviewed and negative except as documented in HPI and ROS
Phy Exam
Physical Exam
Physical Exam:
General: Patient is well appearing and in no acute distress; non-toxic
Skin: Warm and dry, abscess noted to left posterior thigh with small area of surrounding cellulitis
Head: Normocephalic, atraumatic
Eyes: Sclera non-icteric. EOMs intact.
Cardiac: Regular rate and rhythm, no murmurs
Peripheral Vascular: No lower extremity swelling or edema 2+ dorsalis pedis pulses bilaterally
Pulm: Normal respiratory effort
Neuro: CN II-XII intact, no focal neurologic deficits.
Psychiatric: Appropriate mood and affect.
Course
Orders/Labs/Results
Orders:
Orders
09/15/24 13:14
Ibuprofen [Motrin] 400 mg PO NOW STA
Sulfamethox./Trimethoprim Ds [Bactrim Ds 800 mg/160 mg] 1 tablet PO NOW STA
Vital Signs
Initial and Last Documented VS:
Initial Vital Signs
Temp Pulse Resp BP Pulse Ox
98.4 F 107 18 189/128 99
09/15/24 12:23 09/15/24 12:23 09/15/24 12:23 09/15/24 12:23 09/15/24 12:23
Last Documented Vital Signs
Temp Pulse Resp BP Pulse Ox
98.4 F 105 16 136/100 100
09/15/24 12:23 09/15/24 13:47 09/15/24 13:47 09/15/24 13:47 09/15/24 13:47
Procedures
Incision/Drainage/Joint Aspiration
Left Posterior Thigh:
Anethesia: 1% Lidocaine with Epi
Preparation: cleaned with Betadine
Type of procedure: incise and drain
Nature of site: abscess
Description of abscess: greater than 3cm (around 3 cm)
Loculations broken up: No
How much fluid was obtained?: large amount
Fluid description: purulent
Treatment: left open for drainage
MDM/Problems Addressed
Differential Diagnosis Includes:
abscess, cellulitis, cyst
MDM/Problems Addressed:
This is a 33-year-old female who presents emergency department today with concerns of abscess to her left posterior thigh. On exam, there is a abscess with the area of surrounding cellulitis. Patient has had no fevers or chills no nausea vomiting
no other systemic symptoms.
Patient's history of diabetes and small area of surrounding cellulitis, will start on a course of Bactrim. Discussed wound care at home. Discussed importance of proper blood sugar control. Patient stable for discharge. Return precautions
discussed.
Chronic conditions affecting care:
migraines, diabetes
*Pulse Oximetry
Patient hypoxic: no
*Critical Care Note
Total Time (30-74mins, 75-104mins- exclusive of procedures): Not Applicable
Data Reviewed
Review of Other/Old Records Reveals: Records (Reviewed discharge summary from 02/02/2024 patient seen for foot ulcerated lesions with pain and erythema treated with Unasyn and vancomycin, MRI did show early signs of osteomyelitis colitis)
Source: patient and records
Patient Management
Escalation/DeEscalation of care consider admission/obs:
admit not indicated, pt stable for discharge
ED Attending Note
-
Portions of this chart may have been created with voice recognition software.� Occasional wrong word or��sound alike� substitutions may have occurred due to the inherent limitations of voice recognition software.
Discharge Plan
Departure
Patient Disposition: Home (Routine Discharge)
Date of Disposition: 09/15/24
Time of Disposition: 14:06
Patient with high blood pressure during this ER visit?: Yes
Condition: Good
Discharge Problem:
Cellulitis and abscess of leg
Instructions: Cellulitis (Skin Infection), Adult (DC), Abscess incision and drainage - ED discharge instructions, BLOOD PRESSURE
Prescriptions:
New
sulfamethoxazole-trimethoprim [Bactrim DS] 800-160 mg tablet
1 tab PO BID 7 Days Qty: 14 0RF
No Action
Excedrin Migraine 250-250-65 mg Tablet
3 tab PO DAILYPRN PRN (Reason: migraines)
atorvastatin 40 mg Tablet
40 mg PO QPM 30 Days Qty: 30 0RF
insulin aspart U-100 100 unit/mL (3 mL) Insulin Pen
14 unit SC AC 30 Days Qty: 12.6 0RF
doxycycline hyclate 100 mg capsule
100 mg PO BID 42 Days Qty: 84 0RF
amoxicillin-pot clavulanate [Augmentin] 500-125 mg tablet
1 tab PO BID 42 Days Qty: 84 0RF
insulin glargine [Lantus Solostar U-100 Insulin] 100 unit/mL (3 mL) Insulin Pen
10 unit SC HS 30 Days Qty: 3 0RF
(DME) blood-glucose meter [Accu-Chek Guide Glucose Meter] Misc
Qty: 1 0RF
Rx Instructions:
As Directed
(DME) Accu-Chek Guide test strips Strip
Qty: 200 0RF
Rx Instructions:
As Directed
Referrals:
Cornelius Hendrix MD [Family Provider] -
Activity Restrictions/Additional Instructions:
Bactrim has been sent to your pharmacy. Please take 1 tablet twice daily for 7 days.
Please follow-up with your primary care provider in 1 to 2 weeks to ensure that your incision is healing appropriately. We do not want to close it with packing or stitches to allow pus to continue to drain from the wound. You can change the
dressing once daily or as needed to facilitate drainage and bleeding.
Please return emergency department to develop chest pain, shortness of breath, fevers or chills, spreading of the redness down the leg, or any other signs or symptoms worrisome to you.
Interventions
Interventions:
*Risk Screen - Suicide Last Done: 09/15/24 12:23
*General Assessment Last Done: 09/15/24 12:23
*Neglect/Abuse Screening Last Done: 09/15/24 12:23
*ED- Fall Risk Assessment Last Done: 09/15/24 12:23
*ED COVID-19 Vaccine History Last Done: 09/15/24 12:23
*Nursing Disposition Last Done: 09/15/24 14:12
ED-Skin Assessment Last Done: 09/15/24 14:12
Discharge Date and Time
Discharge Date/Time: 09/15/24 14:12
Print Language: [id number]
== END 2024-09-15 14:12 | disposition home or self-care (01) ==
LOC: EMR 12:20
PROVIDERS: EMERGENCY PHYSICIAN Student in an Organized Health Care Education/Training Program; FAMILY PHYSICIAN Internal Medicine
DX: L02.416 Cutaneous abscess of left lower limb (principal); R03.0 Elevated blood-pressure reading, without diagnosis of hypertension; E11.9 Type 2 diabetes mellitus without complications; G43.909 Migraine, unspecified, not intractable, without status migrainosus; Z79.4 Long term (current) use of insulin; Z87.891 Personal history of nicotine dependence
CPT/HCPCS: 99283; 10060